=== PATIENT | female | born 1990 | race Caucasian/White ===

== ENCOUNTER 2018-02-05 11:10 | Emergency (ER) | payer MEDICAID, OTHER ==
--- NOTE | 2018-02-05 11:53 | EDPHY ---
H & P Stated Complaint: migraine not responsive to otc meds Time Seen by Provider: 02/05/18 11:52 HPI/ROS: HPI: This is a 27-year-old female who presents with Chief Complaint: migraine not responsive to otc meds Location: Head Quality: Migraine Duration: 3 days Signs and Symptoms: no fever, + nausea, no vomiting, + photophobia, + noise sensitivity, no neck stiffness, no ear pain, no tinnitus, no nasal congestion, no sinus pressure, no weakness, no radiation, + aura, + sneezing, + itchy throat Timing: Daily Severity: Moderate Context: Patient reports that she has a history of migraine headaches that was diagnosed around age 13, presents with complaints of 3 days ago waking up with an aura and pressure and discomfort behind both eyes that radiated into both temples and into the back of her scalp. Her headache was accompanied by nausea , photophobia and noise sensitivity. She reports that this is a typical migraine pattern for her. She has been taking Tylenol and ibuprofen with mild transient relief. She denies any fever/neck stiffness/ear pain/vision change. She does believe that she may have some seasonal allergies or a cold as she has had an itchy throat, runny nose with clear discharge, dry cough. No history of lung disease. She took a Zyrtec last night as well as this morning. LMP 2027 days ago. Modifying Factors: None Comment: ROS: see HPI Constitutional: No fever, no chills, no weight loss Eyes: No blurred vision Respiratory: No shortness of breath, no cough Cardiovascular: No chest pain, no palpitations Gastrointestinal: + nausea, no vomiting, no diarrhea, no hematemesis, no blood in stool Genitourinary: No dysuria, no blood in urine Extremities: No myalgias, no edema Neurologic: No weakness, no numbness Skin: No rashes, no petechiae Hematologic: No bruising, no bleeding MEDICAL/SURGICAL/SOCIAL HISTORY: Medical history: Migraine headache Surgical history: Denies Social history: Single. Employed. Family history noncontributory. CONSTITUTIONAL: Nontoxic appearing adult white female, wearing glasses, awake and alert, no obvious distress HEENT: Atraumatic and normocephalic, PERRL, EOMI. Nares patent; clear scan rhinorrhea; mild nasal mucosal edema. Tympanic membranes clear. Oropharynx clear , no exudate and moist pink mucosa. Airway patent. No lymphadenopathy. No meningismus. Cardiovascular: Normal S1/S2, regular rate, regular rhythm, without murmur rub or gallop. PULMONARY/CHEST: Symmetrical and nontender. Clear to auscultation bilaterally. Good air movement. No accessory muscle usage. ABDOMEN: Soft, nondistended, nontender, no rebound, no guarding, no peritoneal signs, no masses or organomegaly. No CVAT. EXTREMITIES: 2/2 pulses, strength 5/5, no deformities, no clubbing, no cyanosis or edema. NEUROLOGICAL: no focal neuro deficits. GCS 15. Speech clear. SKIN: Warm and dry, no erythema. no rash. Good capillary refill. Source: Patient Exam Limitations: No limitations - Personal History LMP (Females 10-55): 22-28 Days Ago Current Tetanus/Diphtheria Vaccine: Yes - Medical/Surgical History Hx Asthma: No Hx Chronic Respiratory Disease: No Hx Diabetes: No Hx Cardiac Disease: No Hx Renal Disease: No Hx Cirrhosis: No Hx Alcoholism: No Hx HIV/AIDS: No Hx Splenectomy or Spleen Trauma: No Other PMH: MIGRAINES - Social History Smoking Status: Never smoked Constitutional: Initial Vital Signs Temperature (C) 37.1 C 02/05/18 11:24 Heart Rate 58 L 02/05/18 11:24 Respiratory Rate 18 02/05/18 11:24 Blood Pressure 122/69 H 02/05/18 11:24 O2 Sat (%) 98 02/05/18 11:24 O2 Delivery Mode Room Air Allergies/Adverse Reactions: No Known Allergies Allergy (Verified 02/05/18 11:23) Home Medications: Medication Instructions Recorded Acet/Caffeine/Buta Fioricet 1 each PO Q6 PRN #12 tab 02/05/18 [Fioricet (*)] Benzonatate [Tessalon Pearles (RX)] 100 mg PO Q6 PRN #12 cap 02/05/18 Ondansetron Odt [Zofran Odt 4 mg 4 mg PO Q4 PRN #12 tab 02/05/18 (*)] Medical Decision Making ED Course/Re-evaluation: Vital signs reviewed and stable upon arrival. No signs of meningitis/bacterial sinusitis/neurological deficits MRI brain imaging not indicated 1200: Given 1 L normal saline, IV Decadron, IV Benadryl, IV Toradol with near complete relief of headache 1310: Reassessed patient who reports near complete relief of headache. She is unsure if she has allergies or is starting to get a cold. She reports that she will continue to take Zyrtec and is requesting a cough suppressant. Lung exam was benign without hypoxia/respiratory distress. Given patient Zofran as well as Fioricet to use as needed for migraine headache. This patient was seen under the supervision of my secondary supervising physician. I evaluated care for this patient independently. Discussed this patient with Dr. Pinedo who did not see the patient. Differential Diagnosis: Headache including but not limited to subarachnoid hemorrhage, migraine headache , tension headache and infectious causes such as meningitis, pharyngitis and sinusitis. - Data Points Medications Given: Discontinued Medications Dexamethasone (Decadron Injection) 10 mg IVP EDNOW ONE Stop: 02/05/18 12:00 Last Admin: 02/05/18 12:06 Dose: 10 mg Diphenhydramine HCl (Benadryl Injection) 50 mg IVP EDNOW ONE Stop: 02/05/18 12:00 Last Admin: 02/05/18 12:06 Dose: 50 mg Sodium Chloride (Ns) 1,000 mls @ 0 mls/hr IV ONCE ONE; Wide Open PRN Reason: Protocol Stop: 02/05/18 12:00 Last Admin: 02/05/18 12:06 Dose: 1,000 mls Ketorolac Tromethamine (Toradol) 30 mg IVP EDNOW ONE Stop: 02/05/18 12:00 Last Admin: 02/05/18 12:06 Dose: 30 mg Departure - Departure Disposition: Home, Routine, Self-Care Clinical Impression: Seasonal allergies Migraine with aura and without status migrainosus Qualifiers: Intractability: not intractable Qualified Code(s): G43.109 - Migraine with aura , not intractable, without status migrainosus Condition: Good Instructions: Migraine Headache (ED), Allergies (ED), Cold Symptoms (ED) Additional Instructions: Consume a minimum of 8-10 glasses of water or electrolyte fluid replacement drinks that include Gatorade, Powerade, Pedialyte. Eat a bland diet for the next 48 hours and then slowly advance as tolerated. Take Zofran 1 tab every 4 hours as needed for nausea, vomiting. Continue to take Zyrtec daily for the next several weeks. Use Tessalon Perles as needed for cough. Use Fioricet every 6 hr as needed for headache not relieved by Tylenol or ibuprofen. Return to the ER immediately if you have progressive headaches, neurologic deficits, gait abnormality, visual disturbance, slurred speech, or any other symptom that concerns you. Referrals: [facility] [Other] - 3-4 days, if not improved Prescriptions: Acet/Caffeine/Buta Fioricet [Fioricet (*)] 1 each PO Q6 PRN #12 tab PRN Reason: Headache Benzonatate [Tessalon Pearles (RX)] 100 mg PO Q6 PRN #12 cap PRN Reason: Cough, Moderate Ondansetron Odt [Zofran Odt 4 mg (*)] 4 mg PO Q4 PRN #12 tab PRN Reason: Nausea/Vomiting, Use 1st
[2018-02-05] MEDS ORDERED: KETOROLAC 30 MG/1 ML SDV IVP ONE (11:59)
[2018-02-05] MEDS ORDERED: DEXAMETHASONE 10 MG/ML VIAL IVP ONE (11:59)
[2018-02-05] MEDS ORDERED: NS 1,000 ML IV ONE (11:59)
[2018-02-05 13:22] VITALS: BP 115/45
== END 2018-02-05 13:22 | disposition home or self-care (01) ==
DX: J30.2 Other seasonal allergic rhinitis (principal); G43.109 Migraine with aura, not intractable, without status migrainosus; E86.9 Volume depletion, unspecified
CPT/HCPCS: 96374; J1100; J1200; J1885